=== PATIENT | female | born 2000 | race Caucasian/White ===

== ENCOUNTER 2021-03-08 04:28 | Emergency (ER) | payer OTHER ==
[~2021-03-08] VITALS: Ht 175.3 cm; Wt 81.6 kg
[2021-03-08 04:53] VITALS: BP 119/83
[2021-03-08] MEDS ORDERED: DOXY100C2 PO (05:57)
[2021-03-08] MEDS ORDERED: CEFTRIAXONE 500 MG VIAL IM ONE (06:00)
[2021-03-08] MEDS ORDERED: DOXYCYCLINE HYCLATE (100 MG) 100 MG TABLET PO ONE (06:00)
[2021-03-08] MEDS ORDERED: CEFTRIAXONE 1 G VIAL ONE (06:05)
[2021-03-08] MEDS ORDERED: DOXYCYCLINE HYCLATE (100 MG) 100 MG TABLET ONE (06:05)
--- NOTE | 2021-03-08 09:46 | NUR ---
Patient discharged to home in stable condition. Written and verbal after care instructions given. Patient verbalizes understanding of instruction.
--- NOTE | 2021-03-08 09:46 | NUR ---
THE PATIENT DENIED BEING HOMELESS
== END 2021-03-08 09:47 | disposition home or self-care (01) ==
LOC: ER 04:28
DX: Z20.2 Contact with and (suspected) exposure to infections with a predominantly sexual mode of transmission (principal); F32.9 Major depressive disorder, single episode, unspecified
CPT/HCPCS: 84703; 87491; 87591; 96372; 99283; J0696